=== PATIENT | female | born 1960 | race Caucasian/White ===

== ENCOUNTER → 2020-02-02 13:19 | Outpatient (CLI) | payer BC, SELFPAY ==
--- NOTE | ~2020-02-02 | MM_ITS ---
EXAMINATION: MM screening [facility] BI w oscar HISTORY: Screening mammogram TECHNIQUE: Craniocaudal and mediolateral oblique 3-D tomosynthesis images were obtained and synthetic 2-D images were generated. CAD analysis was submitted and interpreted. COMPARISON: Comparison to multiple prior studies sequentially, with oldest reviewed study dated 12/23. BREAST PARENCHYMAL COMPOSITION: There are scattered areas of fibroglandular density. FINDINGS: There is no evidence of suspicious mass, calcification, or architectural distortion to sugg est malignancy in either breast. There has been no suspicious interval change. IMPRESSION: 1. No mammographic evidence of malignancy. 2. Recommend routine screening mammography in one year. BI-RADS Category 1: Negative Reviewed, dictated and finalized at location A.
== END ==
PROVIDERS: PCP Family Medicine; Visit Provider Family Medicine
DX: Z12.31 Encounter for screening mammogram for malignant neoplasm of breast (principal)
CPT/HCPCS: 77063; 77067

== ENCOUNTER 2020-12-17 15:42 | Emergency (ER) | payer BC, SELFPAY ==
[2020-12-17 15:48] VITALS: BP 136/113; PULSE 97; RESP 16; TEMP 36.5; O2SAT 98
--- NOTE | 2020-12-17 15:51 | ED_ITS ---
HPI - Extremity Injury (Upper) General Chief Complaint: Extremity Injury, Upper Stated Complaint: rt arm pain/neck pain Time Seen by Provider: 12/17/20 15:51 Source: patient and RN notes reviewed Mode of arrival: ambulatory Limitations: no limitations History of Present Illness HPI narrative: 60-year-old female presents to [facility] with complaints of Related Data Allergies Allergy/AdvReac Type Severity Reaction Status Date / Time No Known Allergies Allergy Mild Verified 12/17/20 15:55 PMF Past Medical History Medical History (Updated 12/17/20 @ 16:06 by Marion Diaz) HTN (hypertension), benign Social History Social History (Updated 05/28/20 @ 13:05 by Catalina Galvan) Smoking status: Never smoker Second hand tobacco smoke exposure: No Alcohol intake: current Substance use: never Substance use type: does not use Gender identity (if verbalized by the patient): Female Discharge Plan Discharge Clinical Impression: Right shoulder tendinitis Patient Disposition: Home, Self-Care Condition: Stable Instructions: Rotator Cuff Tendinitis (ED), R.I.C.E. Treatment (ED) Additional Instructions: Alternate heat and ice. Apply warm moist heat 2-3 times a day. Alternate with applying ice 2-3 times a day. Both for 20 minutes Use topicals such as Biofreeze, BenGay or Aspercreme Take ibuprofen alternating with Tylenol as needed for pain Most importantly follow-up with your primary care doctor if pain continues, you may need to be referred to physical therapy If symptoms become worse or you feel it is emergent go directly to the nearest emergency room Patient Language: Iranian Prescriptions: New baclofen 10 mg tablet 10 mg PO BID PRN (Reason: muscle pain) Qty: 10 RF: 0 No Action mirtazapine 45 mg tablet See Rx Instructions .ROUTE .COMPLEX Qty: 90 RF: 2 trazodone 100 mg tablet 150 mg PO .qhs Qty: 270 RF: 1 lisinopril 10 mg tablet 10 mg PO DAILY Qty: 90 RF: 1 Follow-up/Referrals: Nestor Clayton MD [Primary Care Provider] - Time of Disposition: 16:07
== END 2020-12-17 16:11 | disposition home or self-care (01) ==
PROVIDERS: Emergency Provider Nurse Practitioner; PCP Family Medicine
DX: M77.8 Other enthesopathies, not elsewhere classified (principal); I10 Essential (primary) hypertension
CPT/HCPCS: 99213; G0463

== ENCOUNTER → 2021-02-11 15:00 | Outpatient (CLI) | payer BC, SELFPAY ==
--- NOTE | ~2021-02-11 | MM_ITS ---
EXAMINATION: MM screening [facility] w oscar HISTORY: Screening mammogram TECHNIQUE: Craniocaudal and mediolateral oblique 3-D tomosynthesis images were obtained and synthetic 2-D images were generated. CAD analysis was submitted and interpreted. COMPARISON: 02/02/2020, 12/27/2018, 12/23/2017 bilateral digital screening mammogram examinations BREAST PARENCHYMAL COMPOSITION: There are scattered areas of fibroglandular density. FINDINGS: There is no evidence of suspicious mass, calcification, or architectural distortion to sugg est malignancy in either breast. There has been no suspicious interval change. IMPRESSION: 1. No mammographic evidence of malignancy. 2. Recommend routine screening mammography in one year. BI-RADS Category 1: Negative Reviewed, dictated and finalized at location A.
== END ==
PROVIDERS: PCP Family Medicine
DX: Z12.31 Encounter for screening mammogram for malignant neoplasm of breast (principal)
CPT/HCPCS: 77063; 77067

== ENCOUNTER 2022-02-03 12:12 | Emergency (ER) | payer OTHER, SELFPAY ==
--- NOTE | ~2022-02-03 | US_ITS ---
EXAMINATION: US venous doppler [facility] DATE: 02/03/2022 13:51 INDICATION: Left lower limb pain TECHNIQUE: Grayscale ultrasound images without and with compression and Doppler ultrasound images of the left lower extremity veins were obtained. COMPARISON: None. FINDINGS: The visualized portions of left common femoral vein, profunda (deep) femoral vein, femoral vein, popl iteal vein, peroneal veins, posterior tibial veins and gastrocnemius vein. There is thrombosis of the left greater saphenous vein beginning 1-2 cm from the confluence with the common femoral vein and ex tending distally to the knee. The [id number] left greater saphenous vein is patent. IMPRESSION: 1. Deep venous dose in the left greater saphenous vein of the thigh extending to within 2 cm of the confluence with the common femoral vein which would generally be considered a deep venous equivalent. No thrombosis in the deep veins proper. Reviewed, dictated and finalized at location A. IMPRESSION: 1. Deep venous dose in the left greater saphenous vein of the thigh extending to within 2 cm of the confluence with the common femoral vein which would gener ally be considered a deep venous equivalent. No thrombosis in the deep veins pr oper.
--- NOTE | ~2022-02-03 | XR_ITS ---
EXAMINATION: XR elbow LT min 3V EXAM DATE: 02/03/2022 13:33 INDICATION: Elbow Pain When Bending Arm. NKI. TECHNIQUE: Left elbow frontal, lateral with flexion, and oblique projections obtained and reviewed. There is no prior study for comparison. FINDINGS: Left elbow anterior humeral line intact. There are no acute fractures or dislocations can ntified. There is no subcutaneous gas. The soft tissue is unremarkable. There are no radiopaque f oreign bodies. IMPRESSION: No acute osseous findings. Reviewed, dictated and finalized at location B. IMPRESSION: No acute osseous findings.
[2022-02-03 12:15] VITALS: BP 147/97; PULSE 80; RESP 16; TEMP 36.2; O2SAT 98
--- NOTE | 2022-02-03 13:19 | ED.GENADULT ---
HPI - General Adult General Chief complaint: Extremity Injury, Lower Stated complaint: left leg pain Time Seen by Provider: 02/03/22 12:33 Source: patient History of Present Illness HPI narrative: 61-year-old female presented to the emergency department for evaluation of left medial thigh pain and left elbow pain. Patient states over the last 3 days she has had increased tenderness over her left medial thigh. Patient has no ecchymosis or erythema. Patient was concerned of a DVT. Patient has no prior history of DVT. Patient denies any associated chest pain or shortness of breath. Patient denies any specific incident of injury. Patient is also complaining of intermittent left elbow pain that is worsened with movement. Patient suspects that this is related to her carpal tunnel. Patient describes possible repetitive use injury related to her work. Related Data Allergies Allergy/AdvReac Type Severity Reaction Status Date / Time No Known Allergies Allergy Mild Verified 02/03/22 12:19 Review of Systems Review of Systems: CONSTITUTIONAL: Denies fever, chills, or sweats. EYES: Denies visual changes, redness, or discharge. ENT: Denies rhinorrhea, congestion, sore throat, or otalgia. CARDIOVASCULAR: Denies chest pain, palpitations, or edema. RESPIRATORY: Denies cough or dyspnea. GASTROINTESTINAL: Denies abdominal pain, nausea, vomiting, or diarrhea. GENITOURINARY: Denies dysuria or hematuria. SKIN: Denies rash or itching. MUSCULOSKELETAL: Intermittent left elbow pain. Left medial thigh pain and tenderness NEUROLOGIC: Denies headache, numbness, or weakness. [facility] Past Medical History Medical History (Updated 02/03/22 @ 14:17 by John Little MD) HTN (hypertension), benign Social History Social History (Updated 03/11/21 @ 14:47 by Estrella Grullon) Social History: Smoking status: Never smoker Second hand tobacco smoke exposure: No Alcohol intake: former Alcohol use details: social, rare Substance use: never Substance use type: does not use Gender identity (if verbalized by the patient): Female Sexual Orientation (if Verbalized by the Patient): Straight or Heterosexual Exam Narrative: APPEARANCE: Well appearing, no pain, no distress, well-nourished. HEAD: normocephalic, atraumatic. EYES: PERRLA/EOMI, conjunctivae clear. NOSE: Normal no drainage NECK: Supple. No adenopathy, no masses. RESPIRATORY: Airway patent, respirations nonlabored. Clear to auscultation bilaterally, no rales, rhonchi, wheezing. CARDIOVASCULAR: Regular rate and rhythm without murmurs rubs or gallops. ABDOMINAL: Soft, nontender, nondistended, normal bowel sounds MUSCULOSKELETAL: Moves all extremities. Strength/ROM intact, No edema, No calf tenderness. Mild tenderness to the left medial thigh. No ecchymosis, no erythema. NEURO: Alert. Cranial nerves II through XII intact. Grossly intact SKIN: Warm, dry. Normal Color Course Course Emergency Course: Elbow x-ray showed no acute fracture or dislocation. Patient's ultrasound did show evidence of a DVT. I discussed the case with the patient's primary care physician and it was agreed to start the patient on Eliquis. Patient denied any bleeding. No contraindications to Eliquis. Patient was told to have close follow-up with her primary care physician. Patient was educated on reasons to return to the emergency department. All questions and concerns were addressed. And patient was stable at time of discharge. Vital Signs Vital signs: Vital Signs Temperature 97.1 F L 02/03/22 12:15 Pulse Rate 80 02/03/22 12:15 Respiratory Rate 16 02/03/22 12:15 Blood Pressure 147/97 H 02/03/22 12:15 Pulse Oximetry 98 02/03/22 12:15 Temperature 97.1 F L 02/03/22 12:15 Pulse Rate 80 02/03/22 12:15 Respiratory Rate 16 02/03/22 12:15 Blood Pressure 147/97 H 02/03/22 12:15 Pulse Oximetry 98 02/03/22 12:15 Medical Decision Making Vital Signs Vital Signs:
--- NOTE | 2022-02-03 15:28 | PC.NURSE ---
Called Dr Clayton for consult at [phone]
== END 2022-02-03 15:01 | disposition home or self-care (01) ==
PROVIDERS: Emergency Provider Emergency Medicine; PCP Family Medicine
DX: I82.412 Acute embolism and thrombosis of left femoral vein (principal); I10 Essential (primary) hypertension
CPT/HCPCS: 73080; 93971; 99284

== ENCOUNTER → 2022-02-17 10:25 | Outpatient (CLI) | payer OTHER, SELFPAY ==
--- NOTE | ~2022-02-17 | MM_ITS ---
EXAMINATION: MM screening [facility] w oscar HISTORY: Screening mammogram TECHNIQUE: Craniocaudal and mediolateral oblique 3-D tomosynthesis images were obtained and synthetic 2-D images were generated. CAD analysis was submitted and interpreted. COMPARISON: No prior mammogram is available for comparison at this institution. BREAST PARENCHYMAL COMPOSITION: There are scattered areas of fibroglandular density. FINDINGS: There is no evidence of suspicious mass, calcification, or architectural distortion to sugg est malignancy in either breast. There has been no suspicious interval change. IMPRESSION: 1. No mammographic evidence of malignancy. 2. Recommend routine screening mammography in one year. BI-RADS Category 1: Negative Reviewed, dictated and finalized at location A.
== END ==
PROVIDERS: Visit Provider Family Medicine
DX: Z12.31 Encounter for screening mammogram for malignant neoplasm of breast (principal)
CPT/HCPCS: 77063; 77067

== ENCOUNTER 2022-04-07 09:45 | Emergency (ER) | payer OTHER, SELFPAY ==
[2022-04-07 10:02] VITALS: BP 153/109; PULSE 74; RESP 18; TEMP 36.2; O2SAT 97
--- NOTE | 2022-04-07 19:00 | ED.EXTPRO ---
HPI - Extremity Problem General Chief complaint: Extremity Problem,Nontraumatic Stated complaint: dvt Time Seen by Provider: 04/07/22 10:55 History of Present Illness HPI Narrative: Patient is a 62-year-old female with a history of DVT currently on Eliquis here for evaluation of bilateral lower extremity pain and intermittent swelling for the past 2 days. Patient expresses concern, states that she has had similar symptoms with her previous DVT that was diagnosed in January of this year. Patient not currently having any pain, swelling or redness, and states that her symptoms resolved this morning without intervention. She has been wearing compression stockings since her DVT diagnosis. She has been ambulatory without pain. Denies injury to her legs, chest pain, shortness of breath, fevers. She has been compliant with her Eliquis. Related Data Allergies Allergy/AdvReac Type Severity Reaction Status Date / Time No Known Allergies Allergy Mild Verified 02/10/22 13:41 Review of Systems Review of Systems: Gen.: Denies fevers or chills Eyes: Denies eye pain or visual change ENT: Denies congestion Respiratory: Denies shortness of breath or cough CV: Denies chest pain or palpitations GI: Denies abdominal pain nausea, emesis or diarrhea denies burning, urgency, frequency or hematuria Musculoskeletal: Reports bilateral lower extremity cramping Neuro: Denies numbness, tingling, weakness or focal weakness Skin: Denies rash Except as documented, all other systems reviewed and negative [facility] Past Medical History Medical History HTN (hypertension), benign Social History Social History Social History: Second hand tobacco smoke exposure: No Alcohol intake: former Alcohol use details: social, rare Substance use: never Substance use type: does not use Gender identity (if verbalized by the patient): Female Sexual Orientation (if Verbalized by the Patient): Straight or Heterosexual Exam Narrative: APPEARANCE: No acute distress, nontoxic, resting in bed EYES: EOMI HEENT: Normocephalic, atraumatic, OMM RESPIRATORY: No respiratory distress Clear to auscultation bilaterally with no rhonchi wheezing or rales. CARDIOVASCULAR: Regular rate and rhythm without murmurs rubs or gallops. ABDOMINAL: Soft, nontender, nondistended, no rebound or guarding MUSCULOSKELETAL: No erythema or edema noted to bilateral lower extremities. No calf tenderness on palpation. Moves all extremities. No clubbing, cyanosis or edema. NEURO: Awake and alert. Following commands, speech normal, no focal deficits SKIN:: Patient has a telangiectasia on her left anterior proximal thigh. warm, dry. PSYCHIATRIC: Normal affect/mood Course Vital Signs Vital signs: Vital Signs Temperature 97.1 F L 04/07/22 10:02 Pulse Rate 74 04/07/22 10:02 Respiratory Rate 18 04/07/22 10:02 Blood Pressure 153/109 H 04/07/22 10:02 Pulse Oximetry 97 04/07/22 10:02 Oxygen Delivery Room Air 04/07/22 10:02 Temperature 97.1 F L 04/07/22 10:02 Pulse Rate 74 04/07/22 10:02 Respiratory Rate 18 04/07/22 10:02 Blood Pressure 153/109 H 04/07/22 10:02 Pulse Oximetry 97 04/07/22 10:02 Oxygen Delivery Room Air 04/07/22 10:02 MDM - Extremity (Nontraumatic) MDM Narrative Medical decision making narrative: 61-year-old female with a history of DVT currently anticoagulated with Eliquis here for evaluation of bilateral lower extremity swelling and pain over the past day, not currently present. Patient expresses concern over recurrence of DVT. Educated patient that she is already on maximum therapy for DVT, she takes 10 mg of Eliquis daily and has been compliant with this medication. Presentation today is not concerning for acute PE or DVT, she is interested in measures of breath or tachycardia. Ultrasound not currently in
== END 2022-04-07 11:44 | disposition home or self-care (01) ==
PROVIDERS: Emergency Provider Emergency Medicine; PCP Family Medicine
DX: M79.605 Pain in left leg (principal); M79.604 Pain in right leg; I10 Essential (primary) hypertension; Z86.718 Personal history of other venous thrombosis and embolism; Z79.01 Long term (current) use of anticoagulants
CPT/HCPCS: 99281

== ENCOUNTER 2022-04-08 08:01 | Outpatient (CLI) | payer OTHER, SELFPAY ==
--- NOTE | ~2022-04-08 | US_ITS ---
EXAMINATION:US venous doppler [facility] INDICATION:Leg swelling, pain and bruising TECHNIQUE: Multiple grayscale, color flow and Doppler images of the right and left lower extremity de ep venous systems were obtained and reviewed. COMPARISON:02/03/2022 FINDINGS: The common femoral, superficial femoral and popliteal veins demonstrate normal respiratory variation, augmentation and compressibility. Color flow is also seen within the posterior tibial, pe roneal, greater saphenous and profunda veins. IMPRESSION: 1: No lower extremity deep venous thrombosis. Reviewed, dictated and finalized at location A.
== END 2022-04-08 08:02 | disposition home or self-care (01) ==
LOC: ANHIMG 08:04
PROVIDERS: PCP Family Medicine; Visit Provider Family Medicine
DX: Z86.718 Personal history of other venous thrombosis and embolism (principal)
CPT/HCPCS: 93970

== ENCOUNTER → 2023-02-23 10:19 | Outpatient (CLI) | payer OTHER, SELFPAY ==
--- NOTE | ~2023-02-23 | MM_ITS ---
EXAMINATION: MM screening [facility] BI w oscar HISTORY: Screening mammogram TECHNIQUE: Craniocaudal and mediolateral oblique 3-D tomosynthesis images were obtained and synthetic 2-D images were generated. CAD analysis was submitted and interpreted. COMPARISON: 02/17/2022, 02/11/2021, 02/02/2020 BREAST PARENCHYMAL COMPOSITION: There are scattered areas of fibroglandular density. FINDINGS: No suspicious mass, calcification, or architectural distortion are identified in either danny ast to suggest malignancy. There has been no suspicious interval change. IMPRESSION: 1. No mammographic evidence of malignancy. 2. Recommend routine screening mammography in one year. BI-RADS Category 1: Negative Reviewed, dictated and finalized at location A.
== END ==
PROVIDERS: PCP Family Medicine; Visit Provider Family Medicine
DX: Z12.31 Encounter for screening mammogram for malignant neoplasm of breast (principal)
CPT/HCPCS: 77063; 77067

== ENCOUNTER 2024-04-12 12:27 | Outpatient (CLI) | payer OTHER, SELFPAY ==
--- NOTE | ~2024-04-12 | MM_ITS ---
EXAMINATION: MM screening [facility] w oscar HISTORY: Screening TECHNIQUE: Craniocaudal and mediolateral oblique 3-D tomosynthesis images were obtained and synthetic 2-D images were generated. CAD analysis was submitted and interpreted. COMPARISON: Comparison to multiple prior studies sequentially, with oldest reviewed study dated 12/23. BREAST PARENCHYMAL COMPOSITION: Not dense: There are scattered areas of fibroglandular density. FINDINGS: There is no evidence of suspicious mass, calcification, or architectural distortion to sugg est malignancy in either breast. There has been no suspicious interval change. IMPRESSION: 1. No mammographic evidence of malignancy. 2. Recommend routine screening mammography in one year. BI-RADS Category 1: Negative Reviewed, dictated and finalized at location B.
== END 2024-04-12 12:28 ==
LOC: MICIMG 12:30
PROVIDERS: PCP Family Medicine; Visit Provider Family Medicine
DX: Z12.31 Encounter for screening mammogram for malignant neoplasm of breast (principal)
CPT/HCPCS: 77063; 77067

== ENCOUNTER 2025-07-25 12:25 | Outpatient (CLI) | payer OTHER, SELFPAY ==
--- NOTE | ~2025-07-25 | MM_ITS ---
EXAMINATION: MM screening [facility] w oscar HISTORY: Screening TECHNIQUE: Craniocaudal and mediolateral oblique 3-D tomosynthesis images were obtained and synthetic 2-D images were generated. CAD analysis was submitted and interpreted. COMPARISON: 02/23/2023 BREAST PARENCHYMAL COMPOSITION: Not Dense: The breasts are almost entirely fatty. FINDINGS: There is no evidence of suspicious mass, calcification, or architectural distortion to suggest malignancy in either breast. [There has been no significant interval change. IMPRESSION: 1. No mammographic evidence of malignancy. Recommend routine screening mammography in one year. BI-RADS Category 1: Negative Reviewed, dictated, and finalized at Location A. Reviewed, dictated and finalized at location Q. IMPRESSION: 1. No mammographic evidence of malignancy. Recommend routine screening mammogra phy in one year. BI-RADS Category 1: Negative
== END 2025-07-25 12:26 | disposition home or self-care (01) ==
LOC: MICIMG 12:26
PROVIDERS: PCP Family Medicine; Visit Provider Family Medicine
DX: Z12.31 Encounter for screening mammogram for malignant neoplasm of breast (principal)
CPT/HCPCS: 77063; 77067